=== PATIENT | female | born 1975 | race Caucasian/White ===

== ENCOUNTER 2017-02-26 13:07 | Emergency (ER) | payer OTHER ==
--- NOTE | 2017-02-26 15:21 | UC ---
Throat Pain/Nasal Elliott HPI - HPI Summary HPI Summary: Worsening sinus pain for the past 7 days, green yellow nasal drainage - History of Current Complaint Chief Complaint: UCRespiratory Stated Complaint: SINUS CONGESTION Time Seen by Provider: 02/26/17 15:06 Hx Obtained From: Patient Hx Last Menstrual Period: 02/20/17 ?: No Onset/Duration: Sudden Onset, Lasting Days - 7, Worse Since - past 2 days Severity: Moderate Cough: Sputum Appears - green yellow Associated Signs & Symptoms: Positive: Sinus Discomfort, Nasal Discharge - Allergies/Home Medications Allergies/Adverse Reactions: Allergies Allergy/AdvReac Type Severity Reaction Status Date / Time Codeine Allergy Intermediate blacks out Verified 02/26/17 14:15 Home Medications: Home Medications Phenylephrine W/ Acetaminophen [Tylenol Sinus Congestion 5-325 mg] 1 tab PO BID PRN 02/26/17 [History Confirmed 02/26/17] PMH/Surg Hx/FS Hx/Imm Hx Previously Healthy: Yes Endocrine History Of: Denies: Diabetes, Thyroid Disease Cardiovascular History Of: Denies: Cardiac Disorders, Hypertension Respiratory History Of: Denies: COPD, Asthma - Surgical History Surgical History: Yes Surgery Procedure, Year, and Place: uterine surgery 07/12 for polyps and fibroids. eye surgerys 20 years ago - lazy eye. gallbladder removed 09/2016 - Family History Known Family History: Positive: None - Social History Occupation: Employed Full-time Lives: With Family Alcohol Use: Occasionally Substance Use Type: None Smoking Status (MU): Never Smoked Tobacco Review of Systems Constitutional: Negative Skin: Negative Eyes: Negative ENT: Sore Throat Respiratory: Cough Cardiovascular: Negative Gastrointestinal: Negative Genitourinary: Negative Motor: Negative Neurovascular: Negative Musculoskeletal: Negative Neurological: Headache - frontal and maxilla sinus pain Psychological: Negative All Other Systems Reviewed And Are Negative: Yes Physical Exam Triage Information Reviewed: Yes Appearance: Well-Appearing, No Pain Distress, Well-Nourished Vital Signs: Initial Vital Signs Temp 99.1 F 02/26/17 14:11 Pulse 91 02/26/17 14:11 Resp 16 02/26/17 14:11 BP 147/80 02/26/17 14:11 Pulse Ox 100 02/26/17 14:11 Vital Signs Reviewed: Yes Eye Exam: Normal Eyes: Positive: Conjunctiva Clear ENT Exam: Normal ENT: Positive: Normal ENT inspection, Hearing grossly normal, Pharynx normal, Nasal congestion, Nasal drainage, TMs normal. Negative: Tonsillar swelling, Tonsillar exudate, Trismus, Muffled/hoarse voice Dental Exam: Normal Neck exam: Normal Neck: Positive: Supple, Nontender, No Lymphadenopathy Respiratory Exam: Normal Respiratory: Positive: Chest non-tender, Lungs clear, Normal breath sounds, No respiratory distress, No accessory muscle use Cardiovascular Exam: Normal Cardiovascular: Positive: RRR, No Murmur, Pulses Normal, Brisk Capillary Refill Musculoskeletal Exam: Normal Musculoskeletal: Positive: Strength Intact, ROM Intact, No Edema Neurological Exam: Normal Neurological: Positive: Alert, Muscle Tone Normal Psychological Exam: Normal Skin Exam: Normal Throat Pain/Nasal Course/Dx - Course Assessment/Plan: Flonase, nasal irragation, augmentin, follow BP with Dr. Vogel - Differential Dx/Diagnosis Differential Diagnosis/HQI/PQRI: Pharyngitis, Sinusitis, URI Provider Diagnoses: Acute Sinusitis, Htn Discharge - Discharge Plan Condition: Stable Disposition: HOME Prescriptions: Amoxicillin/Clavulanate TAB* [Augmentin TAB 875*] 875 mg PO BID #20 tab Fluticasone NASAL SPRAY 50MCG* [Flonase NASAL SPRAY 50MCG*] 2 spray BOTH NARES DAILY #1 btl Patient Education Materials: Guaifenesin (By mouth), Sinusitis (ED), DASH Eating Plan (ED), Hypertension (ED), Nasal Rinse (ED), How to Use Nasal [place] ( ED) Referrals: No Primary Care Phys,NOPCP [Primary Care Provider] - Additional Instructions: Follow with your provider (Dr. Vogel) for blood pressure recheck in 2 weeks
[2017-02-26 15:52] VITALS: BP 136/88
== END 2017-02-26 15:35 | disposition home or self-care (01) ==
LOC: UCEAST 13:07
DX: J01.90 Acute sinusitis, unspecified (principal); I10 Essential (primary) hypertension; Z88.5 Allergy status to narcotic agent
CPT/HCPCS: 99212; G0463

== ENCOUNTER 2017-08-25 10:37 | Emergency (ER) | payer OTHER ==
--- NOTE | 2017-08-25 10:40 | UC ---
Respiratory Complaint HPI - HPI Summary HPI Summary: Pt came back from trip to [place] last month and has had cold like symptoms ever since. Today complains of chest tightness, SOB, and non-productive cough. Feels aches and general fatigue as the day goes on. Has tried mucinex with mild relief. - History of Current Complaint Chief Complaint: UCRespiratory Stated Complaint: COUGH CONGESTION Time Seen by Provider: 08/25/17 10:40 Hx Obtained From: Patient Hx Last Menstrual Period: 02/20/17 ?: No Onset/Duration: Gradual Onset Timing: Constant Severity Initially: Mild Severity Currently: Moderate Character: Cough: Nonproductive Aggravating Factors: Deep Breaths Alleviating Factors: OTC Meds Associated Signs And Symptoms: Positive: Dyspnea, Chills, URI. Negative: Wheezing, Hemoptysis, Dizziness, Calf Pain, Calf Swelling, Nasal Congestion, Hoarseness, Sinus Discomfort - Allergies/Home Medications Allergies/Adverse Reactions: Allergies Allergy/AdvReac Type Severity Reaction Status Date / Time Codeine Allergy Intermediate blacks out Verified 08/25/17 10:44 Home Medications: Home Medications guaiFENesin ER TAB [Mucinex*] 600 mg PO Q12H PRN 08/25/17 [History Confirmed ] PMH/Surg Hx/FS Hx/Imm Hx Previously Healthy: Yes - Surgical History Surgical History: Yes Surgery Procedure, Year, and Place: uterine surgery 07/12 for polyps and fibroids. eye surgerys 20 years ago - lazy eye. gallbladder removed 09/2016 - Family History Known Family History: Positive: None - Social History Occupation: Employed Full-time Lives: With Family Alcohol Use: Occasionally Substance Use Type: None Smoking Status (MU): Never Smoked Tobacco Review of Systems Constitutional: Fever, Chills Skin: Negative Eyes: Negative ENT: Negative Respiratory: Shortness Of Breath, Cough, Other - Chest tightness Cardiovascular: Negative Gastrointestinal: Negative Neurological: Negative Psychological: Negative Is Patient Immunocompromised?: No All Other Systems Reviewed And Are Negative: Yes Physical Exam Triage Information Reviewed: Yes Appearance: Well-Appearing, Obese Vital Signs Reviewed: Yes Eyes: Positive: Conjunctiva Clear ENT: Positive: Normal ENT inspection, Hearing grossly normal, Pharynx normal, TMs normal. Negative: Pharyngeal erythema, Nasal congestion, Nasal drainage, TM bulging, TM dull, TM red, Tonsillar swelling, Tonsillar exudate, Muffled/ hoarse voice Neck: Positive: Supple, Nontender, No Lymphadenopathy Respiratory: Positive: No respiratory distress, No accessory muscle use, Decreased breath sounds - LLL, Wheezing - throughout. Negative: Crackles, Rhonchi Cardiovascular: Positive: RRR, No Murmur, Pulses Normal Neurological: Positive: Alert Psychological: Positive: Age Appropriate Behavior Respiratory Course/Dx - Course Course Of Treatment: CXR was negative for any acute disease process. Albuterol HFA, nebulizer, and flu swab options were discussed with patient and she felt her SOB would benefit from a nebulizer treatment. A duoneb was given, pt felt mild relief and felt like she was able to take deeper breaths - her lung wheezes did improve on exam. She developed some associated dizziness, likely from the duoneb, and was monitored until she and I felt comfortable discharging her to home. Rx for albuterol for home use - Differential Dx/Diagnosis Differential Diagnosis/HQI/PQRI: Asthma, Bronchitis, Influenza, Pulmonary Embolism, Other - URI Provider Diagnoses: Acute bronchitis Discharge - Discharge Plan Condition: Stable Disposition: HOME Prescriptions: Albuterol HFA INHALER* [Ventolin HFA Inhaler*] 2 puff INH Q6H PRN #1 mdi PRN Reason: Sob/Wheezing Patient Education Materials: Acute Bronchitis (ED) Referrals: [facility] [place] [facility]ERR[facility] [Outside] - As Soon As Possible Additional Instructions: Please call the provided number to see a Primary Care Provider regarding your elevated blood pressure at today's office visit. If you develop a fever, chest pain, SOB, new or worsening symptoms - please call our office or go to ED.
[2017-08-25 10:44] VITALS: BP 153/88
--- NOTE | 2017-08-25 11:09 | RAD ---
HISTORY: Cough COMPARISONS: July 27, 2015 VIEWS: 4: Frontal dual-energy and lateral views of the chest. FINDINGS: CARDIOMEDIASTINAL SILHOUETTE: The cardiomediastinal silhouette is normal. ESTELITA: The estelita are normal. PLEURA: The costophrenic angles are sharp. No pleural abnormalities are noted. LUNG PARENCHYMA: The lungs are clear. ABDOMEN: The upper abdomen is clear. There is no subphrenic gas. BONES AND SOFT TISSUES: No bone or soft tissue abnormalities are noted. OTHER: None. IMPRESSION: NO ACTIVE CARDIOPULMONARY DISEASE.
[2017-08-25] MEDS ORDERED: Albuterol/Ipratropium NEB.SOL* Albuterol 2.5 MG/Ipratropium 0.5 MG 3 ML INH ONE (11:14)
== END 2017-08-25 12:20 | disposition home or self-care (01) ==
LOC: UCEAST 10:37
DX: J20.9 Acute bronchitis, unspecified (principal); E66.9 Obesity, unspecified; Z88.5 Allergy status to narcotic agent
CPT/HCPCS: 71020; 99212; A9270-GY; G0463

== ENCOUNTER 2018-12-07 09:54 | Emergency (ER) | payer BC, MEDICAID, OTHER ==
[2018-12-07 10:30] VITALS: BP 124/80
--- NOTE | 2018-12-07 10:57 | UC ---
Respiratory Complaint HPI - HPI Summary HPI Summary: started feeling sick with URI symps 1 1/2 weeks ago. has tried no meds. cough getting worse over past 2-3 days. - History of Current Complaint Chief Complaint: UCRespiratory Stated Complaint: RESP Time Seen by Provider: 12/07/18 10:20 Hx Obtained From: Patient Hx Last Menstrual Period: 11/30/18 ?: No Onset/Duration: Gradual Onset Pain Intensity: 0 Aggravating Factors: Deep Breaths, Recumbent Position Alleviating Factors: Nothing Associated Signs And Symptoms: Positive: Nasal Congestion. Negative: Fever, Hemoptysis, Dizziness, Calf Pain - Allergies/Home Medications Allergies/Adverse Reactions: Allergies Allergy/AdvReac Type Severity Reaction Status Date / Time codeine Allergy Intermediate See Comment Verified 12/07/18 09:57 PMH/Surg Hx/FS Hx/Imm Hx Previously Healthy: Yes - Surgical History Surgical History: Yes Surgery Procedure, Year, and Place: uterine surgery 07/12 for polyps and fibroids. eye surgerys 20 years ago - lazy eye. gallbladder removed 09/2016 - Family History Known Family History: Positive: None Negative: Hypertension, Diabetes - Social History Occupation: Unemployed Lives: With Family Alcohol Use: Occasionally Substance Use Type: None Smoking Status (MU): Never Smoked Tobacco Review of Systems All Other Systems Reviewed And Are Negative: Yes Constitutional: Positive: Negative. Negative: Fever Skin: Positive: Negative. Negative: Rash ENT: Positive: Sinus Congestion. Negative: Sore Throat, Ear Ache Respiratory: Positive: Cough. Negative: Shortness Of Breath Cardiovascular: Positive: Negative Gastrointestinal: Positive: Negative Musculoskeletal: Positive: Negative Neurological: Positive: Negative. Negative: Headache Psychological: Positive: Negative Is Patient Immunocompromised?: No Physical Exam Appearance: Well-Appearing, No Pain Distress, Obese Vital Signs: Initial Vital Signs Temp 98 F 12/07/18 10:25 Pulse 82 12/07/18 10:25 Resp 18 12/07/18 10:25 BP 124/80 12/07/18 10:25 Pulse Ox 98 12/07/18 10:25 Vital Signs Reviewed: Yes Eyes: Positive: Conjunctiva Clear ENT: Positive: Pharynx normal, Nasal congestion, TMs normal. Negative: Sinus tenderness Neck exam: Normal Neck: Positive: Supple, Nontender, No Lymphadenopathy Respiratory Exam: Normal Respiratory: Positive: Lungs clear, Other: - persistent dry cough on exam. Negative: Respiratory distress Cardiovascular Exam: Normal Cardiovascular: Positive: RRR Neurological Exam: Normal Psychological Exam: Normal Skin Exam: Normal UC Diagnostic Evaluation - Laboratory O2 Sat by Pulse Oximetry: 98 Respiratory Course/Dx - Differential Dx/Diagnosis Differential Diagnosis/HQI/PQRI: Asthma, Bronchitis, Influenza, Lower Resp Infection, Sinusitis Provider Diagnosis: Bronchitis Discharge - Sign-Out/Discharge Documenting (check all that apply): Patient Departure All imaging exams completed and their final reports reviewed: No Studies - Discharge Plan Condition: Good Disposition: HOME Prescriptions: Azithromycin TAB* [Zithromax TAB (Z-JESUS) 250 mg #6 tabs] 2 tab PO .TODAY, THEN 1 DAILY #1 jesus Patient Education Materials: Acute Bronchitis (ED) Referrals: No Primary Care Phys,NOPCP [Primary Care Provider] - Additional Instructions: drink plenty of clearfluids rest, use over the counter cough and cold medication for symptom relief report to ER if symptoms worsen take antibiotic as prescribed - Billing Disposition and Condition Condition: GOOD Disposition: Home - Attestation Statements Provider Attestation: I was available for consult. This patient was seen by the GAVIN. The patient was not presented to , seen by or examined by -Italo Crisostomo MD
== END 2018-12-07 11:22 | disposition home or self-care (01) ==
LOC: UCEAST 09:54
DX: J40 Bronchitis, not specified as acute or chronic (principal); Z88.5 Allergy status to narcotic agent
CPT/HCPCS: 99212; G0463